=== PATIENT | female | born 1975 | race Caucasian/White ===

== ENCOUNTER → 2017-05-08 | Outpatient (CLI) | payer SELFPAY ==
--- NOTE | 2017-05-08 18:56 | CT ---
CT HEAD WITHOUT AND WITH CONTRAST CLINICAL HISTORY: 41-year-old female with right-sided headache. COMPARISON: None. TECHNIQUE: Multiple axial CT images were obtained from the skull base to the cranial vertex prior to and following the administration of 100 mL Omnipaque 350. FINDINGS: Noncontrasted images demonstrate no evidence of abnormal intra- or extra axial fluid collec tions, midline shift, or mass effect. Partially empty sella. Foster white differentiation is maintained . The ventricular system is normal in size and morphology. The basal cisterns are normal in appearanc e. Post contrast images demonstrate no evidence of abnormal intracranial enhancement. The paranasal sinuses, mastoid air cells, and tympanic cavities are clear. Hyperostosis frontalis int bryson. IMPRESSION: 1. No acute intracranial process. 2. Partially empty sella, this can be seen with pseudotumor cerebri, consider correlation with LP. Reported By:
== END ==
LOC: RAD 17:42
PROVIDERS: ATTEND Family Medicine
DX: R51 Headache (principal); E23.6 Other disorders of pituitary gland
CPT/HCPCS: 70470; A4222